=== PATIENT | female | born 1975 | race Caucasian/White ===

== ENCOUNTER 2018-09-10 18:23 | Emergency (ER) | payer BC ==
[2018-09-10] MEDS: HYDROCODONE/APAP (5/325) TAB PO (19:52)
== END 2018-09-10 22:15 | disposition home or self-care (01) ==
LOC: FTE 18:23
DX: S52.001A Unspecified fracture of upper end of right ulna, initial encounter for closed fracture (principal); S52.101A Unspecified fracture of upper end of right radius, initial encounter for closed fracture; W18.30XA Fall on same level, unspecified, initial encounter; Y92.89 Other specified places as the place of occurrence of the external cause
CPT/HCPCS: 29105; 73070; 73090-RT; 99283-25

== ENCOUNTER 2018-09-13 09:14 | Inpatient (IN) | payer BC ==
[2018-09-12 12:11] LABS: ADD MAN DIFF? NO
[2018-09-12 12:12] LABS: BASOPHIL # 0.1 10^3/ul (0.0-0.1); BASOPHILS % 0.8 % (0.0-2.0); EOSINOPHILS % 0.4 % (0.0-7.0); HEMATOCRIT 34.6 % (37.0-47.0); HEMOGLOBIN 11.5 g/dl (12.0-16.0); LYMPHOCYTES # 2.2 10^3/ul (0.8-2.9); LYMPHOCYTES % 21.4 % (15.0-51.0); MEAN CORPUSCULAR HEMOGLOBIN 30.2 pg (29.0-33.0); MEAN CORPUSCULAR HGB CONC 33.2 g/dl (32.0-37.0); MEAN CORPUSCULAR VOLUME 90.8 fl (82.0-101.0); MEAN PLATELET VOLUME 8.1 fl (7.4-10.4); MONOCYTE # 0.4 10^3/ul (0.3-0.9); MONOCYTES % 3.8 % (0.0-11.0); NEUTROPHIL # 7.4 10^3/ul (1.6-7.5); NEUTROPHILS % 73.1 % (39.0-77.0); PLATELET COUNT 428 10^3/UL (140-415); RED BLOOD COUNT 3.81 10^6/ul (4.20-5.40); RED CELL DISTRIBUTION WIDTH 13.6 % (11.5-14.5)
[2018-09-12 12:12] LABS: WHITE BLOOD COUNT 10.1 10^3/ul (4.8-10.8)
[2018-09-12 12:31] LABS: ANION GAP 8 (5-13); BLOOD UREA NITROGEN 13 mg/dl (7-20); CALCIUM 8.5 mg/dl (8.4-10.2); CARBON DIOXIDE 26 mmol/L (21-31); CHLORIDE 104 mmol/L (97-110); CREATININE 0.93 mg/dl (0.44-1.00); Estimated GFR > 60 mL/min (>60); GLUCOSE 95 mg/dl (70-220); POTASSIUM 4.5 mmol/L (3.5-5.1); SODIUM 138 mmol/L (135-144)
[2018-09-12 12:32] LABS: ADD UMIC YES; UR ASCORBIC ACID NEGATIVE (NEGATIVE); UR BACTERIA FEW /HPF (NONE SEEN); UR BILIRUBIN (Dip) NEGATIVE (NEGATIVE); UR BLOOD (Dip) 1+ mg/dL (NEGATIVE); UR CLARITY CLEAR (CLEAR); UR COLOR YELLOW (YELLOW); UR GLUCOSE (Dip) NEGATIVE (NEGATIVE); UR KETONES (Dip) NEGATIVE (NEGATIVE); UR LEUKOCYTE ESTERASE (Dip) 2+ Leu/ul (NEGATIVE); UR NITRITE (Dip) NEGATIVE (NEGATIVE); UR NONSQUAMOUS EPITHELIAL CELL 2 /HPF (NONE SEEN); UR RBC 4 /HPF (0-5); UR SPECIFIC GRAVITY (Dip) 1.013 (1.003-1.030); UR SQUAMOUS EPITHELIAL CELL FEW /HPF (FEW); UR TOTAL PROTEIN (Dip) NEGATIVE (NEGATIVE); UR UROBILINOGEN (Dip) NEGATIVE (NEGATIVE); UR WBC 19 /HPF (0-5)
[2018-09-12 12:34] LABS: INR 0.95; PROTIME 12.8 Sec (11.9-14.9)
[2018-09-12 12:50] LABS: PARTIAL THROMBOPLASTIN TIME 24.8 Sec (23.0-35.0)
[2018-09-13] MEDS ORDERED: CEFAZOLIN 1 GM INJ (10:00)
[2018-09-13] MEDS ORDERED: FENTAnyl 50 MCG/ML VIAL ×2 (10:33→16:52)
[2018-09-13] MEDS ORDERED: GLYCOPYRROLATE 0.4 MG INJ (10:33)
[2018-09-13] MEDS ORDERED: PROPOFOL 20 ML (10:33)
[2018-09-13] MEDS ORDERED: ROCURONIUM 50 MG INJ (10:33)
[2018-09-13] MEDS ORDERED: MIDAZOLAM 1 MG/ML 2 ML INJ (10:33)
[2018-09-13] MEDS ORDERED: DEXAMETHASONE 4 MG/ML 1 ML INJ (10:33)
[2018-09-13] MEDS ORDERED: NEOSTIGMINE 3 MG/3 ML SYRINGE (10:33)
[2018-09-13] MEDS ORDERED: LIDOCAINE 2% (SDV) 5 ML INJ (10:33)
[2018-09-13] MEDS ORDERED: ONDANSETRON 4 MG INJ (10:34)
[2018-09-13] MEDS: POLYMYXIN/BACITRACIN 1L IRRIG IRR (14:15)
[2018-09-13] MEDS ORDERED: FLUMAZENIL 0.5 MG INJ (14:24)
[2018-09-13] MEDS ORDERED: HYDROmorphONE 1 MG/5 ML IV SYRINGE IV ×2 (17:42→18:00)
[2018-09-13] MEDS ORDERED: KETOROLAC 15 MG INJ IV (18:00)
[2018-09-13] MEDS ORDERED: EPHEDrine SULFATE 50 MG/5 ML SYG IV (18:00)
[2018-09-13] MEDS ORDERED: ONDANSETRON 4 MG INJ IV ×2 (18:00)
[2018-09-13] MEDS ORDERED: DIPHENHYDRAMINE 50 MG INJ IV (18:00)
[2018-09-13] MEDS ORDERED: hydrALAzine 20 MG INJ IV (18:00)
[2018-09-13] MEDS ORDERED: ALBUTEROL 0.083% (NEB) 2.5 MG/3 ML AMP HHN (18:00)
[2018-09-13] MEDS ORDERED: METOCLOPRAMIDE 10 MG INJ IV (18:00)
[2018-09-13] MEDS ORDERED: IPRATROPIUM (NEB) 0.5 MG/2.5 ML AMP HHN (18:00)
[2018-09-13] MEDS ORDERED: MEPERIDINE 25 MG INJ IV (18:00)
[2018-09-13] MEDS ORDERED: LABETALOL HCL 20MG INJ IV (18:00)
[2018-09-13] MEDS ORDERED: FENTAnyl 50 MCG/ML VIAL IV ×3 (18:00)
[2018-09-13] MEDS: HYDROmorphONE 1 MG/5 ML IV SYRINGE IV ×2 (18:08→18:26)
[2018-09-13] MEDS: ACETAMINOPHEN 1000MG/100ML IV 100 ML IVPB (18:30)
[2018-09-13 18:34] LABS: ABNORMAL IP MESSAGE 1; HEMOGLOBIN 10.9 g/dl (12.0-16.0); MEAN CORPUSCULAR HEMOGLOBIN 30.3 pg (29.0-33.0); MEAN CORPUSCULAR HGB CONC 34.1 g/dl (32.0-37.0); MEAN CORPUSCULAR VOLUME 88.9 fl (82.0-101.0); MEAN PLATELET VOLUME 8.3 fl (7.4-10.4); PLATELET COUNT 389 10^3/UL (140-415); RED CELL DISTRIBUTION WIDTH 13.6 % (11.5-14.5)
[2018-09-13] MEDS: HYDROmorphONE 0.2 MG/ML PCA IV (18:37)
[2018-09-13 18:41] LABS: ADD MAN DIFF? YES
[2018-09-13 18:43] LABS: POSITIVE DIFF @See below
[2018-09-13 18:50] LABS: ANION GAP 11 (5-13); BLOOD UREA NITROGEN 12 mg/dl (7-20); CARBON DIOXIDE 22 mmol/L (21-31); CHLORIDE 106 mmol/L (97-110); CREATININE 0.97 mg/dl (0.44-1.00); Estimated GFR > 60 mL/min (>60); GLUCOSE 140 mg/dl (70-220); SODIUM 139 mmol/L (135-144)
[2018-09-13 18:56] LABS: CALCIUM 8.3 mg/dl (8.4-10.2); POTASSIUM 4.3 mmol/L (3.5-5.1)
[2018-09-13 19:00] LABS: BASOPHIL #M 0.1 10^3/ul (0.0-0.0); BASOPHILS % (M) 1 % (0-2); LYMPHOCYTES #M 0.4 10^3/ul (0.8-2.9); LYMPHOCYTES % (M) 4 % (15-51); PLATELET ESTIMATE NORMAL; SEGMENTED NEUTROPHILS (M) % 95 % (39-77); SMUDGE%M 2 % (0-0)
[2018-09-13] MEDS: DEXTROSE 5%-0.45% NACL 1,000 ML IV (23:18)
[2018-09-13] MEDS: CEFAZOLIN 1 GM/50 ML (PMX) 50 ML IVPB (23:24)
[2018-09-14] MEDS ORDERED: HYDROmorphONE 0.2 MG/ML PCA ×2 (04:56→12:34)
[2018-09-14] MEDS: HYDROmorphONE 0.2 MG/ML PCA IV ×3 (05:01→23:31)
[2018-09-14] MEDS: DEXTROSE 5%-0.45% NACL 1,000 ML IV ×2 (06:30→12:37)
[2018-09-14] MEDS: CEFAZOLIN 1 GM/50 ML (PMX) 50 ML IVPB ×3 (06:48→22:04)
[2018-09-14 12:26] LABS: ADD UMIC YES; UR ASCORBIC ACID NEGATIVE (NEGATIVE); UR BILIRUBIN (Dip) NEGATIVE (NEGATIVE); UR BLOOD (Dip) 1+ mg/dL (NEGATIVE); UR CLARITY CLEAR (CLEAR); UR COLOR YELLOW (YELLOW); UR GLUCOSE (Dip) NEGATIVE (NEGATIVE); UR KETONES (Dip) NEGATIVE (NEGATIVE); UR LEUKOCYTE ESTERASE (Dip) NEGATIVE Leu/ul (NEGATIVE); UR NITRITE (Dip) NEGATIVE (NEGATIVE); UR NONSQUAMOUS EPITHELIAL CELL 1 /HPF (NONE SEEN); UR RBC 7 /HPF (0-5); UR SPECIFIC GRAVITY (Dip) 1.018 (1.003-1.030); UR TOTAL PROTEIN (Dip) NEGATIVE (NEGATIVE); UR UROBILINOGEN (Dip) NEGATIVE (NEGATIVE); UR WBC 7 /HPF (0-5)
[2018-09-15] MEDS: DEXTROSE 5%-0.45% NACL 1,000 ML IV ×2 (03:17→17:55)
[2018-09-15 05:06] LABS: ADD MAN DIFF? NO
[2018-09-15 05:09] LABS: WHITE BLOOD COUNT 12.8 10^3/ul (4.8-10.8)
[2018-09-15 05:09] LABS: BASOPHIL # 0.1 10^3/ul (0.0-0.1); BASOPHILS % 0.5 % (0.0-2.0); EOSINOPHILS # 0.2 10^3/ul (0.0-0.5); EOSINOPHILS % 1.9 % (0.0-7.0); HEMATOCRIT 32.5 % (37.0-47.0); HEMOGLOBIN 10.6 g/dl (12.0-16.0); LYMPHOCYTES # 2.4 10^3/ul (0.8-2.9); LYMPHOCYTES % 18.7 % (15.0-51.0); MEAN CORPUSCULAR HEMOGLOBIN 29.5 pg (29.0-33.0); MEAN CORPUSCULAR HGB CONC 32.6 g/dl (32.0-37.0); MEAN CORPUSCULAR VOLUME 90.5 fl (82.0-101.0); MEAN PLATELET VOLUME 8.5 fl (7.4-10.4); MONOCYTE # 0.7 10^3/ul (0.3-0.9); MONOCYTES % 5.6 % (0.0-11.0); NEUTROPHIL # 9.3 10^3/ul (1.6-7.5); NEUTROPHILS % 72.7 % (39.0-77.0); PLATELET COUNT 403 10^3/UL (140-415); RED BLOOD COUNT 3.59 10^6/ul (4.20-5.40); RED CELL DISTRIBUTION WIDTH 13.5 % (11.5-14.5)
[2018-09-15 05:28] LABS: ANION GAP 8 (5-13); BLOOD UREA NITROGEN 10 mg/dl (7-20); CALCIUM 8.4 mg/dl (8.4-10.2); CARBON DIOXIDE 27 mmol/L (21-31); CHLORIDE 102 mmol/L (97-110); CREATININE 0.76 mg/dl (0.44-1.00); Estimated GFR > 60 mL/min (>60); GLUCOSE 126 mg/dl (70-220); POTASSIUM 4.1 mmol/L (3.5-5.1); SODIUM 137 mmol/L (135-144)
[2018-09-15] MEDS: CEFAZOLIN 1 GM/50 ML (PMX) 50 ML IVPB ×3 (06:15→21:46)
[2018-09-15] MEDS: POLYETHYLENE GLYCOL 17 GM PACKET PO (10:29)
[2018-09-15] MEDS: DOCUSATE SODIUM 100 MG CAP PO ×2 (10:29→20:29)
[2018-09-15] MEDS: ENOXAPARIN 40 MG/0.4 ML SYG SC (10:30)
[2018-09-15] MEDS ORDERED: NALOXONE (0.4 MG/ML) INJ IV (18:30)
[2018-09-15] MEDS: HYDROCODONE/APAP (5/325) TAB PO (19:37)
[2018-09-16] MEDS: HYDROCODONE/APAP (5/325) TAB PO ×3 (05:09→13:30)
[2018-09-16] MEDS: CEFAZOLIN 1 GM/50 ML (PMX) 50 ML IVPB (05:09)
[2018-09-16 05:50] LABS: ADD MAN DIFF? NO
[2018-09-16 06:01] LABS: WHITE BLOOD COUNT 7.9 10^3/ul (4.8-10.8)
[2018-09-16 06:01] LABS: BASOPHIL # 0.1 10^3/ul (0.0-0.1); BASOPHILS % 0.6 % (0.0-2.0); EOSINOPHILS # 0.3 10^3/ul (0.0-0.5); EOSINOPHILS % 3.3 % (0.0-7.0); HEMATOCRIT 31.7 % (37.0-47.0); HEMOGLOBIN 10.6 g/dl (12.0-16.0); LYMPHOCYTES # 2.8 10^3/ul (0.8-2.9); LYMPHOCYTES % 35.5 % (15.0-51.0); MEAN CORPUSCULAR HGB CONC 33.4 g/dl (32.0-37.0); MEAN CORPUSCULAR VOLUME 89.8 fl (82.0-101.0); MEAN PLATELET VOLUME 8.6 fl (7.4-10.4); MONOCYTE # 0.7 10^3/ul (0.3-0.9); MONOCYTES % 8.5 % (0.0-11.0); NEUTROPHIL # 4.1 10^3/ul (1.6-7.5); NEUTROPHILS % 51.5 % (39.0-77.0); PLATELET COUNT 421 10^3/UL (140-415); RED BLOOD COUNT 3.53 10^6/ul (4.20-5.40); RED CELL DISTRIBUTION WIDTH 13.6 % (11.5-14.5)
[2018-09-16 06:35] LABS: ANION GAP 7 (5-13); BLOOD UREA NITROGEN 18 mg/dl (7-20); CALCIUM 8.3 mg/dl (8.4-10.2); CARBON DIOXIDE 27 mmol/L (21-31); CHLORIDE 105 mmol/L (97-110); CREATININE 0.83 mg/dl (0.44-1.00); Estimated GFR > 60 mL/min (>60); GLUCOSE 93 mg/dl (70-220); POTASSIUM 4.2 mmol/L (3.5-5.1); SODIUM 139 mmol/L (135-144)
[2018-09-16] MEDS: DOCUSATE SODIUM 100 MG CAP PO (09:19)
[2018-09-16] MEDS: ENOXAPARIN 40 MG/0.4 ML SYG SC (09:23)
== END 2018-09-16 16:30 | disposition home or self-care (01) | DRG 511 ==
LOC: SDS 09:14 → REC 18:06 → MS1 19:53
PROC: 0PSK04Z Reposition Right Ulna with Internal Fixation Device, Open Approach (ICD-10-PCS; principal; 2018-09-13 12:00)
DX: S52.021A Displaced fracture of olecranon process without intraarticular extension of right ulna, initial encounter for closed fracture (principal); K50.90 Crohn's disease, unspecified, without complications; N39.0 Urinary tract infection, site not specified; S52.131A Displaced fracture of neck of right radius, initial encounter for closed fracture; K59.00 Constipation, unspecified; W18.39XA Other fall on same level, initial encounter; Y93.A3 Activity, aerobic and step exercise; Y92.39 Other specified sports and athletic area as the place of occurrence of the external cause
CPT/HCPCS: 71045; 73070; 73070-52; 80048; 81001; 85025; 85610; 85730; 87040; 87086; 97166